=== PATIENT | female | born 1960 | race African-American/Black ===

== ENCOUNTER 2020-10-08 23:14 | Emergency (ER) | payer SELFPAY ==
[~2020-10-08] VITALS: Ht 162.6 cm; Wt 78.0 kg
[2020-10-08] MEDS ORDERED: ASPIRIN 81MG TABLET PO ONE (23:30)
[2020-10-09 00:31] LABS: BASOPHILS % 0.5 % (0.0-2.0); EOSINOPHILS % 0.4 % (0.0-5.0); HEMATOCRIT. 31.7 % (36.0-48.0); HEMOGLOBIN. 10.8 g/dL (12.0-16.0); LYMPHOCYTES % 29.2 % (20.0-50.0); MEAN CORPUSCULAR HEMOGLOBIN 29.2 pg (28.0-32.0); MEAN CORPUSCULAR VOLUME 85.8 fL (81.0-99.0); MEAN PLATELET VOLUME 8.3 fl (7.4-10.4); MONOCYTES % 10.2 % (2.0-8.0); NEUTROPHILS % 59.7 % (40.0-76.0); PLATELET 293 x1000/uL (130-400); RED BLOOD CELL COUNT 3.69 mill/uL (4.2-5.4); RED CELL DISTRIBUTION WIDTH 14.7 % (11.6-14.6)
[2020-10-09 00:35] LABS: CHLORIDE 105 mEq/L (98-107)
[2020-10-09 00:40] LABS: ETHANOL BLOOD < 10 mg/dL
[2020-10-09 04:28] VITALS: BP 171/89
[2020-10-27] MEDS ORDERED: FURO-152 MT (15:29)
== END 2020-10-09 04:37 | disposition home or self-care (01) ==
LOC: ER 23:14
DX: R00.2 Palpitations (principal); I10 Essential (primary) hypertension; Z88.8 Allergy status to other drugs, medicaments and biological substances; Z91.14 Patient's other noncompliance with medication regimen
CPT/HCPCS: 36415; 71045; 80053; 80320; 83690; 83880; 84443; 84484; 85025; 93005; 99285; Z7610; G0480